=== PATIENT | female | born 1965 ===

== ENCOUNTER 2024-12-23 06:18 | Day surgery (SDC) | payer BC, SELFPAY | END 2024-12-23 13:46 | disposition home or self-care (01) | LOC: GI 06:18 | PROVIDERS: ATTENDING PHYSICIAN Internal Medicine Gastroenterology | DX: Z12.11 Encounter for screening for malignant neoplasm of colon (principal); Z83.719 Family history of colon polyps, unspecified; Z98.0 Intestinal bypass and anastomosis status; K57.30 Diverticulosis of large intestine without perforation or abscess without bleeding; K64.8 Other hemorrhoids; R12 Heartburn; K44.9 Diaphragmatic hernia without obstruction or gangrene; K63.5 Polyp of colon | CPT/HCPCS: 45380; 43235; 88305 ==